=== PATIENT | female | born 1930 | race Caucasian/White ===

== ENCOUNTER 2017-07-03 16:20 | Emergency (ER) | payer OTHER ==
[~2017-07-03] VITALS: Ht 160 cm; Wt 70.3 kg
--- NOTE | 2017-07-03 16:25 | NUR ---
ELLIOT FROM [facility] FOR ELEVATED BLOOD PRESSURE AND N/V. PATIENT IS A/OX 1-2. BREATHING EVEN AND UNLABORED. RUNNING FEVER, 102.0. IV ESTABLISHED IN ROUTE, RFA, 20 G. NO SOB. NAD. SAFETY AND COMFORT MEASURES IN PLACE. AWAITING MD ORDERS.
--- NOTE | 2017-07-03 16:35 | NUR ---
[employer] AT BEDSIDE FOR BLOOD DRAW.
[2017-07-03] MEDS ORDERED: IV NS 0.9% 1,000 ML BAG IV ONE (17:00)
[2017-07-03] MEDS ORDERED: ACETAMINOPHEN ES 500 MG TABLET PO ONE (17:00)
[2017-07-03 17:01] LABS: BASOPHILS # (AUTO) 0.1 /CMM (0.0-0.2); BASOPHILS % (AUTO) 0.6 % (0.0-2.0); EOSINOPHILS # (AUTO) 0.2 /CMM (0.0-0.7); EOSINOPHILS % (AUTO) 1.9 % (0.0-6.0); HEMATOCRIT 41 % (33-45); HEMOGLOBIN 13.9 g/dL (11.5-14.8); LYMPHOCYTES # (AUTO) 0.5 /CMM (0.8-4.8); LYMPHOCYTES % (AUTO) 5.3 % (20.0-44.0); MEAN CORPUSCULAR HEMOGLOBIN 32 PG (26.0-33.0); MEAN CORPUSCULAR HGB CONC 34 g/dl (31.0-36.0); MEAN CORPUSCULAR VOLUME 92 fL (82-100); MONOCYTES # (AUTO) 0.1 /CMM (0.1-1.30); MONOCYTES % (AUTO) 1.3 % (2.0-12.0); NEUTROPHILS # (AUTO) 9.5 /CMM (1.8-8.9); NEUTROPHILS % (AUTO) 90.9 % (43.0-81.0); PLATELET COUNT (AUTO) 164 /CMM (150-450); RDW COEFFICIENT OF VARIATION 13.2 (11.5-15.0); RED BLOOD CELL COUNT(AUTO) 4.38 MIL/uL (4.0-5.2); WHITE BLOOD COUNT (AUTO) 10.4 K/uL (4.3-11.0)
[2017-07-03] MEDS ORDERED: ACETAMINOPHEN ES 500 MG TABLET ONE (17:07)
[2017-07-03 17:15] LABS: INR 0.95 (0.85-1.15)
[2017-07-03 17:18] LABS: ALANINE AMINOTRANSFERASE 20 U/L (12-78); ALBUMIN 3.9 g/dL (3.4-5.0); ALKALINE PHOSPHATASE 86 U/L (46-116); ASPARTATE AMINOTRANSFERASE 31 U/L (15-37); BILIRUBIN,DIRECT 0.2 mg/dL (0.0-0.2); BILIRUBIN,TOTAL 0.9 mg/dL (0.2-1.0); CALCIUM, SERUM 9.1 mg/dL (8.5-10.1); CARBON DIOXIDE 32 mmol/L (21-32); CHLORIDE 101 mmol/L (98-107); CREATININE 0.7 mg/dL (0.6-1.3); GLUCOSE 124 mg/dL (74-106); POTASSIUM 3.3 mmol/L (3.5-5.1); SODIUM SERUM 139 mmol/L (136-145); UREA NITROGEN, BLOOD 19 mg/dL (7-18)
[2017-07-03 17:20] LABS: TROPONIN I < 0.017 ng/mL (0.00-0.056)
--- NOTE | 2017-07-03 17:25 | NUR ---
URINE OBTAINED VIA STRAIGHT CATH PER MD ORDERS AND SENT TO LAB.
[2017-07-03 17:36] LABS: APPEARANCE,URINE Slightly Cloudy (CLEAR); BILIRUBIN,URINE Negative (NEGATIVE); BLOOD, URINE Small Ery/uL (NEGATIVE); COLOR,URINE Light yellow (YELLOW); KETONES,URINE Negative (NEGATIVE); LEUKOCYTE ESTERASE ,URINE Negative (NEGATIVE); NITRITE, URINE Negative (NEGATIVE); PROTEIN,URINE 100 mg/dl (NEGATIVE); UGLUCOSE Negative (NEGATIVE); UROBILINOGEN,URINE 0.2 EU/dL (0.2)
[2017-07-03 18:25] LABS: BACTERIA,URINE None seen /HPF (None Seen); SQUAMOUS EPITHELIAL CELL,UR Few /HPF (None Seen); WBC,URINE 0-2 /HPF (0-3)
--- NOTE | 2017-07-03 18:52 | NUR ---
CALLED [facility]
[2017-07-03] MEDS ORDERED: PIPERACILLIN /TAZOBACTAM 3.375 G in IV D5W 50 ML IV ONE (19:00)
--- NOTE | 2017-07-03 19:17 | NUR ---
REPORT GIVEN TO JOSEPH BERNARD FOR [facility].
--- NOTE | 2017-07-03 19:37 | NUR ---
CALLED [facility] AGAIN FOR CONSULT
--- NOTE | 2017-07-03 20:28 | NUR ---
CALLED [facility] FOR UPDATE - THEY ARE STILL WORKING ON TRANSFER DETAILS
[2017-07-03] MEDS ORDERED: LORAZEPAM INJ 2 MG/ML VIAL IV ONE (21:00)
[2017-07-03] MEDS ORDERED: LORAZEPAM INJ 2 MG/ML VIAL ONE (21:19)
--- NOTE | 2017-07-03 21:51 | NUR ---
PATIENT IS SLEEPING COMFORTABLY AT THIS TIME.
[2017-07-03 22:04] VITALS: BP 110/70
--- NOTE | 2017-07-03 22:08 | NUR ---
PATIENT IS GOING TO [facility] TO [facility] [address] - ADMITTING DR MERCEDES RODRIGUEZ - LILIAN HERNANDEZN MITZI EN ROUTE WITH ETA [id number] - NUMBER FOR REPORT IS [phone]
--- NOTE | 2017-07-03 22:15 | NUR ---
REPORT GIVEN TO KULWANT BERNARD AT [facility] FOR ROOM 4109-A ADMISSION.
--- NOTE | 2017-07-03 22:40 | NUR ---
ENDORSED CARE TO EMS FOR TRANSPORT. VSS. NAD NOTED. DAUGHTER MORENITA AT BEDSIDE.
--- NOTE | 2017-07-04 19:48 | NUR ---
KULWANT BERNARD- [facility] NOTIFIED OF BLOOD CULTURE RESULT. FAXED TO [phone]
== END 2017-07-03 22:44 | disposition short-term general hospital (02) ==
LOC: ER 16:21
DX: J18.9 Pneumonia, unspecified organism (principal); F03.90 Unspecified dementia, unspecified severity, without behavioral disturbance, psychotic disturbance, mood disturbance, and anxiety; Z01.818 Encounter for other preprocedural examination
CPT/HCPCS: 36415; 71045-TC; 80048-TC; 80076-TC; 81000-TC; 83605-TC; 84484-TC; 85025-TC; 85730-TC; 87040-TC; 87086-TC; 87186-TC; 87400; A4606; J2060; J2543; J7030; J7060; Z7610